=== PATIENT | female | born 1990 | race African-American/Black ===

== ENCOUNTER 2023-04-25 08:00 | Outpatient (CLI) | payer OTHER ==
[2023-04-25 16:30] LABS: BILIRUBIN,URINE NEGATIVE (NEGATIVE); GLUCOSE, URINE (UA) NEGATIVE (NEGATIVE); KETONES,URINE (UA) NEGATIVE (NEGATIVE); LEUKOCYTE ESTERASE, URINE NEGATIVE (NEGATIVE); NITRITE,URINE NEGATIVE (NEGATIVE); OCCULT BLOOD,URINE NEGATIVE (NEGATIVE); PROTEIN,URINE 30 mg/dL (NEGATIVE); UROBILINOGEN,URINE 1 (NORMAL) E.U./dL (NORMAL)
[2023-04-25 16:38] LABS: CLARITY,URINE CLEAR (CLEAR)
[2023-04-25 17:01] LABS: BACTERIA,URINE Few /HPF (None Seen); RBC,URINE 0-5 /HPF (0-5); SQUAMOUS EPITHELIAL CELL,UR MANY Squamous (<= Few); WBC,URINE 0-3 /HPF (0-5)
== END 2023-04-25 23:59 | disposition home or self-care (01) ==
LOC: LAB.WC 08:00
PROVIDERS: ATTEND Nurse Practitioner
DX: Z34.90 Encounter for supervision of normal pregnancy, unspecified, unspecified trimester (principal)
CPT/HCPCS: 81001; 87086

== ENCOUNTER 2023-05-02 11:22 | Outpatient (CLI) | payer OTHER ==
[2023-05-02 17:48] LABS: BASOPHILS % (AUTO) 0.4 %; EOSINOPHILS % (AUTO) 0.4 %; HCT - HEMATOCRIT 36.5 % (37.0-47.0); HGB - HEMOGLOBIN 11.3 g/dL (12.0-16.0); LYMPHOCYTES # (AUTO) 1.2 10^3/uL (1.5-3.5); LYMPHOCYTES % (AUTO) 25.6 %; MEAN CORPUSCULAR HEMOGLOBIN 26.2 pg (27.0-31.0); MEAN CORPUSCULAR VOLUME 84.7 fL (81.0-99.0); MEAN PLATELET VOLUME 10.1 fL (7.9-10.8); MONOCYTES # (AUTO) 0.3 10^3/uL (0.0-1.0); MONOCYTES % (AUTO) 5.7 %; NEUTROPHILS # (AUTO) 3.2 10^3/uL (1.5-6.6); NEUTROPHILS % (AUTO) 67.7 %; PLT - PLATELET COUNT 232 10^3/uL (130-450); RED BLOOD COUNT 4.31 10^6/uL (4.20-5.40); RED CELL DISTRIBUTION WIDTH 13.1 % (12.0-15.0); WHITE BLOOD COUNT 4.8 x10^3/uL (4.8-10.8)
[2023-05-02 18:01] LABS: BILIRUBIN,URINE NEGATIVE (NEGATIVE); GLUCOSE, URINE (UA) NEGATIVE (NEGATIVE); KETONES,URINE (UA) 40 mg/dL (NEGATIVE); LEUKOCYTE ESTERASE, URINE NEGATIVE (NEGATIVE); NITRITE,URINE NEGATIVE (NEGATIVE); OCCULT BLOOD,URINE NEGATIVE (NEGATIVE); PROTEIN,URINE TRACE mg/dL (NEGATIVE); UROBILINOGEN,URINE 1 (NORMAL) E.U./dL (NORMAL)
[2023-05-02 18:04] LABS: CLARITY,URINE CLOUDY (CLEAR)
[2023-05-02 18:11] LABS: AMORPHOUS SEDIMENT,UR Marked /LPF; BACTERIA,URINE Few /HPF (None Seen); RBC,URINE None Seen /HPF (0-5); SQUAMOUS EPITHELIAL CELL,UR FEW Squamous (<= Few); WBC,URINE 0-3 /HPF (0-5)
== END 2023-05-02 11:23 | disposition home or self-care (01) ==
LOC: LAB.N 11:22
PROVIDERS: ATTEND Nurse Practitioner
DX: Z34.90 Encounter for supervision of normal pregnancy, unspecified, unspecified trimester (principal)
CPT/HCPCS: 36415; 81001; 85025; 86592; 86762; 86787; 86803; 86850; 86900; 86901; 87086; 87340; 87389

== ENCOUNTER 2023-05-07 12:09 | Outpatient (CLI) | payer OTHER ==
--- NOTE | 2023-05-08 07:22 | Ultrasound Report ---
PROCEDURE: OB 1st Trimester INDICATIONS: POSITIVE TEST OUTSIDE/PRIOR DATING DATA: Last menstrual period (LMP): 03/08/2023. LMP-based estimated date of delivery (LACHELLE): 12/13/2023. First dating scan (date and location): 05/07/2023. Estimated date of delivery (LACHELLE) from first dating scan: 05/07/2023. TECHNIQUE: Real-time scanning was performed of the fetus and maternal pelvic organs, with image documentation. COMPARISON: None. FINDINGS: Intrauterine gestational sac present. Embryo: Solitary pole is present in the gestational sac which measures 2.2 cm in length for a gestational age of 8 weeks, 6 days. Heart rate: 41 bpm. Other: No perigestational fluid collection. Measurement variability in dating: +/- 4 weeks by LMP, +/- 7 days by mean sac diameter (use before 6 weeks gestation if crown-rump length not able to be measured), +/- 5 days by crown-rump length (6-12 weeks gestation). Maternal organs: Ovaries appear within normal limits. There is a right corpus luteal cyst. IMPRESSION: 1. Single live intrauterine gestation with a gestational age of 8 weeks, 6 days by crown-rump length. Reviewed by: Magda Covington MD on 05/08/2023 7:21 AM PDT Approved by: Magda Covington MD on 05/08/2023 7:21 AM PDT Station ID: [id number]
== END 2023-05-07 12:10 | disposition home or self-care (01) ==
LOC: DI 12:09
PROVIDERS: ATTEND Nurse Practitioner
DX: Z34.91 Encounter for supervision of normal pregnancy, unspecified, first trimester (principal)

== ENCOUNTER 2023-07-04 12:39 | Outpatient (CLI) | payer OTHER ==
[2023-07-04 17:41] LABS: HCT - HEMATOCRIT 36.3 % (37.0-47.0); HGB - HEMOGLOBIN 11.5 g/dL (12.0-16.0); MEAN CORPUSCULAR HEMOGLOBIN 27.4 pg (27.0-31.0); MEAN CORPUSCULAR HGB CONC 31.7 g/dL (32.0-36.0); MEAN CORPUSCULAR VOLUME 86.6 fL (81.0-99.0); MEAN PLATELET VOLUME 10.1 fL (7.9-10.8); RED BLOOD COUNT 4.19 10^6/uL (4.20-5.40); RED CELL DISTRIBUTION WIDTH 14.1 % (12.0-15.0); WHITE BLOOD COUNT 6.7 x10^3/uL (4.8-10.8)
[2023-07-04 18:00] LABS: CREATININE,URINE 100.8 mg/dL; PROTEIN/CREATININE RATIO,URINE 0.2 (<=0.2)
== END 2023-07-04 12:40 | disposition home or self-care (01) ==
LOC: LAB.N 12:39
PROVIDERS: ATTEND Nurse Practitioner
DX: O21.0 Mild hyperemesis gravidarum (principal)
CPT/HCPCS: 36415; 81511; 82570; 84156; 85027

== ENCOUNTER 2023-08-31 06:58 | Outpatient (CLI) | payer OTHER ==
--- NOTE | 2023-08-31 15:30 | Ultrasound Report ---
PROCEDURE: OB Anatomy Scan INDICATIONS: SUPERVISION OF OUTSIDE/PRIOR DATING DATA: Last menstrual period (LMP): 03/08/2023. LMP-based estimated date of delivery (LACHELLE): 12/13/2023. First dating scan (date and location): 05/07/2023. Estimated date of delivery (LACHELLE) from first dating scan: 12/11/2023. The below data below was generated using the clinical LACHELLE of 12/13/2023 TECHNIQUE: Real-time scanning was performed of the fetus, with image documentation and biometric measurements. Endovaginal scanning: Not performed. COMPARISON: None. FINDINGS: General: A single living intrauterine gestation is present. Presentation: Vertex Placenta: Placental position is posterior, without previa. Amniotic fluid index: 15.1 cm, within normal limits for gestational age. heart rate: 143 beats per minute. Maternal cervical canal: 4 cm long; normal length is 2.5 cm or more. biometrics: Biparietal diameter: 6.3 cm, 25 weeks 3 days, 52 percentile Head circumference: 23.1 cm, 25 weeks 1 day, 27 percentile Abdominal circumference: 19.7 cm, 24 weeks 2 days, 18 percentile Femur length: 4.9 cm, 26 weeks 3 days, 77 percentile Estimated gestational age from initial scan: 25 weeks 1 day Composite gestational age from present scan: 25 weeks 2 days Estimated weight and percentile: 788 g, 44th percentile Measurement variability in biometric dating: +/- 10 days from 12-20 weeks gestation, +/- 2 weeks from 20-30 weeks gestation, +/- 3 weeks at 30 weeks gestation or later. Anatomic survey: Neuro: Ventricles are normal at less than 10 mm. Cisterna magna is normal at 3-11 mm. Cerebellum i s normal in size and morphology. Nuchal skin fold: Normal at less than 6 mm between 14 and 20 weeks gestational age. Face: Nose and lips, facial profile are normal. Spine: No evidence for spina bifida. Heart: 4-chambered heart is present, with normal ventricular outflow tracts. Diaphragm: Diaphragm is intact. Stomach: Left-sided stomach is present. Kidneys: No hydronephrosis. Normal is less than 5 mm in 2nd trimester, less than 7 mm in 3rd trimester. Cord: 2 vessel cord has orthotopic insertion. Bladder: Normal in size. Extremities: All 4 extremities are visualized. IMPRESSION: Single living intrauterine at 25 weeks 1 day, LACHELLE of 12/13/2023. Two-vessel umbilical cord. Otherwise, normal anatomy survey. Estimated weight of 788 g, 44th percentile Reviewed by: Zhen Lucas MD on 08/31/2023 2:28 PM FELISHA Approved by: Zhen Lucas MD on 08/31/2023 2:28 PM AKDANIEL Station ID: [id number]
== END 2023-08-31 06:59 | disposition home or self-care (01) ==
LOC: DI 06:58
PROVIDERS: ATTEND Nurse Practitioner
DX: Z34.92 Encounter for supervision of normal pregnancy, unspecified, second trimester (principal)